=== PATIENT | female | born 1955 ===

== ENCOUNTER 2020-12-21 08:04 | Outpatient (CLI) | payer OTHER ==
[~2020-12-21 08:04] MED LIST: DOLOGEN CAPLET1 EACH PO; LEVITRA2.5 MG; MEDROL4 MG PO; PEPCID20 MG PO; SYNTHROID50 MCG; ULTRACET PO
== END 2020-12-21 08:08 | disposition home or self-care (01) ==
LOC: SONOGRAMA 08:04
PROVIDERS: ATTEND Pathology Anatomic Pathology & Clinical Pathology
DX: E04.2 Nontoxic multinodular goiter (principal); D34 Benign neoplasm of thyroid gland